=== PATIENT | female | born 1970 | race Caucasian/White ===

== ENCOUNTER → 2019-12-02 | Day surgery (SDC) | payer BC ==
[~2019-12-02] MED LIST: *PACU ONLY* KETAMINE HCL 10 MG/ML (20ML) VIAL IV ONE; 0.9 % SODIUM CHLORIDE 10 ML VIAL IVP ONE; ACETAMINOPHEN 1,000 MG/100 ML BTL IVPB ONE; BUPIVACAINE 0.25% MPF 30ML VIAL IVP ONE; BUPIVACAINE 0.5% W/EPI MPF 30 ML VIAL SQ ONE; BUPIVACAINE LIPOSOME/PF 133MG/10ML VIAL IV ONE; CEFAZOLIN 2 Gram 2 GM/50 ML BAG IVPB ONE; CLINDAMYCIN PHOS/D5W 900MG 900 MG/50 ML BAG IVPB ONE; FENTANYL PF 100MCG/2ML VIAL IV ONE; GLYCOPYRROLATE 0.2 MG/ML ML IV ONE; MIDAZOLAM HCL 2MG/2ML VIAL IV ONE; MORPHINE SULFATE 10MG/1ML **1ML VIAL IU ONE; PROPOFOL 10 MG/ML VIAL IV ONE; RINGERS SOLUTION,LACTATED 1,000 ML IV ONE
--- NOTE | 2019-12-05 06:20 | Operative Note ---
DATE OF SURGERY: 12/02/2019 PREOPERATIVE DIAGNOSIS: Left shoulder impingement. POSTOPERATIVE DIAGNOSES: 1. Small chronic tear of the rotator cuff. 2. Partial tear of the long head of the biceps tendon with small glenohumeral labral tear anteriorly. 3. Left shoulder external impingement. 4. Arthrosis of left distal clavicle. OPERATION: 1. Repair of a chronically torn rotator cuff tear open on the left. 2. Left shoulder arthroscopy with interarticular debridement. 3. Left shoulder open acromioplasty, CA ligament resection, subacromial bursectomy. 4. Left shoulder distal clavicle resection. STAFF SURGEON: Corby Gallo MD ANESTHESIA: Block with sedation. PREPARATION: Chloraprep. INDIVIDUAL CONSIDERATIONS: None. PROCEDURE: The patient was taken to the operating room, placed supine on the operating room table. He had a successful induction of a block and then placed in a semi-seated beach chair position and then given IV sedation. The patient had posterior portal identified for arthroscopy. Skin was infiltrated with 0.5% Marcaine with epinephrine prior. An 18-gauge spinal needle was easily placed in the joint, and the joint was inflated with normal saline. A stab wound was made, and a blunt-tipped trocar for the scope was easily placed in the joint. The joint was inflated with normal saline. An anterior portal was then made in a retrograde fashion with a Wissinger tanmay. The joint was then irrigated out. The patient had a small tear of the rotator cuff at the supraspinatus. Long head had a partial tear involving maybe 10% with an unstable strand which was debrided with a shaver. Glenohumeral joint was normal. No significant synovitis. Subscap tendon was normal. Some fraying of the anterior labrum was debrided with a shaver. After irrigation, portals were closed with serg. The patient had an anterior approach to the subacromial space and distal clavicle. Skin was again infiltrated with 0.5% Marcaine with epinephrine prior. Sharp dissection carried down through skin and subcutaneous tissues. Small veins were coagulated with a Bovie. An anterior deltoid interval was developed. Care was taken not to split the deltoid more than about 4 cm distal to the anterior tip of the acromion to prevent injury to the axillary nerve. Once in the subacromial space, there was a blackwell of fluid consistent with a tear. The deltoid was then taken subperiosteally off the anterior aspect of the acromion, over the top of the intact CA ligament, and off the anterior aspect of the degenerated distal clavicle. CA ligament was resected with a Bovie. Distal clavicle was resected with an oscillating saw taking about 6 mm. An anterior acromioplasty was performed taking about 6-7 mm tapering towards posteromedially to include the spurs at the AC joint. The undersurface was smoothed with a rasp. A complete bursectomy was performed with Metzenbaum scissors which was thickened. I could see the rotator cuff tear at the supraspinatus insertion measuring at least about 0.5 cm but once I debrided it back to good bleeding tendon, I had about a 1.5 cm tear. I was able to freshen this up easily and mobilize it. I freshened up the tuberosity with a lico, brought the tendon back to the tuberosity with #1 Ethibond retention sutures going through holes at the base of the tuberosity and then tied down distally with knots. This affected an anatomic repair. I put the shoulder through a full range of motion to ensure no further impingement. After irrigation, the deltoid was reattached to the remaining acromion with multiple interrupted #2 Vicryl going directly through the bony acromion. The periosteal cuff of the distal clavicle was closed with running #2 Vicryl. Anterior deltoid interval was closed with running #1 Vicryl. Subcu was closed with running 2-0 plus Vicryl in layers and skin was closed with a running 3-0 quill. Roughly 15 mL of 0.5% Marcaine with epinephrine and 10 mg of morphine were injected into the subacromial space through a sterile 18-gauge needle. A sterile bulky compressive dressing and sling were applied. The patient tolerated the procedure well. Needle and sponge counts were correct. Estimated blood loss was minimal. He was taken back to recovery in good condition. There were no complications. MICHELLE
== END | disposition home or self-care (01) ==
LOC: SUR 10:47
PROVIDERS: ATTEND Orthopaedic Surgery
DX: M75.102 Unspecified rotator cuff tear or rupture of left shoulder, not specified as traumatic (principal); S43.432A Superior glenoid labrum lesion of left shoulder, initial encounter; S46.112A Strain of muscle, fascia and tendon of long head of biceps, left arm, initial encounter; M19.012 Primary osteoarthritis, left shoulder; K21.9 Gastro-esophageal reflux disease without esophagitis; F17.210 Nicotine dependence, cigarettes, uncomplicated
CPT/HCPCS: 29822; 23412; 23415; 23120; 01610; 64418; J3010; J3490; C9290; J2270; 76942; J7120